=== PATIENT | male | born 2000 | race African-American/Black ===

== ENCOUNTER 2020-01-11 13:10 | Emergency (ER) | payer MEDICAID ==
[~2020-01-11] VITALS: Ht 167.6 cm; Wt 77.0 kg
[2020-01-11 13:32] VITALS: BP 138/96
[2020-01-11] MEDS ORDERED: IBUPROFEN 600MG TABLET PO ONE (15:15)
== END 2020-01-11 16:52 | disposition home or self-care (01) ==
LOC: ER 13:10
DX: S16.1XXA Strain of muscle, fascia and tendon at neck level, initial encounter (principal); S20.211A Contusion of right front wall of thorax, initial encounter; V49.49XA Driver injured in collision with other motor vehicles in traffic accident, initial encounter; Y93.89 Activity, other specified; Y92.89 Other specified places as the place of occurrence of the external cause; Y99.8 Other external cause status; Z98.890 Other specified postprocedural states
CPT/HCPCS: 71045; 72040; 99284

== ENCOUNTER 2025-03-31 20:43 | Emergency (ER) | payer MEDICAID ==
[~2025-03-31] VITALS: Ht 167.6 cm; Wt 63.6 kg
[2025-03-31 21:00] VITALS: TEMP 37.1; O2SAT 99
[2025-04-01] MEDS ORDERED: AMOX1TAB16 MT (01:56)
[2025-04-01 02:07] VITALS: BP 123/88; PULSE 67; RESP 16; O2SAT 100
== END 2025-04-01 02:08 | disposition home or self-care (01) ==
LOC: ER 20:43
DX: S81.852A Open bite, left lower leg, initial encounter (principal); W54.0XXA Bitten by dog, initial encounter; Y93.89 Activity, other specified; Y92.89 Other specified places as the place of occurrence of the external cause; Y99.8 Other external cause status
CPT/HCPCS: 73590; 99283